=== PATIENT | male | born 1930 | race Caucasian/White ===

== ENCOUNTER 2017-06-30 11:17 | Emergency (ER) | payer OTHER, MEDICAID ==
[~2017-06-30] VITALS: Ht 167.6 cm; Wt 68.2 kg
[2017-06-30] MEDS ORDERED: ASPIRIN 81 MG TAB PO STA (11:21)
[2017-06-30] MEDS ORDERED: SOD CHLORIDE 0.9% 1,000 ML IV STA (11:21)
[2017-06-30] MEDS ORDERED: NITROGLYCERIN 2% 1 GM OINT PKT TD STA (11:21)
[2017-06-30 11:28] VITALS: Ht 167.6 cm; Wt 68.2 kg
[2017-06-30] MEDS ORDERED: NITROGLYCERIN (SL) 0.4 MG TAB SL PRN (11:30)
--- NOTE | 2017-06-30 12:01 | RADRPT ---
PROCEDURE: XR Chest. CLINICAL INDICATION: Chest pain. TECHNIQUE: Single frontal view. COMPARISON: None. FINDINGS: There is a nodule in the left upper lobe laterally measuring centimeter. There is bilateral pulmonar y scarring and possible small nodules in the right upper lobe. The heart is enlarged. There is calcification in the aorta consistent with atherosclerosis. There is no pleural effusion. There is no pneumothorax. IMPRESSION: 1. Cardiomegaly and atherosclerosis. 2. Left upper lobe nodule. Correlation with CT scan should be considered. 3. Bilateral pulmonary scarring and possible small nodules in the right upper lobe. RPTAT: QQ .Terrance Bethea MD, MD Date Time Electronically viewed and signed by .Terrance Bethea MD, MD on 06/30/2017 12:01 .R/
[2017-06-30 12:09] LABS: BASOPHILS % 0.3 % (0.0-2.0); EOSINOPHILS # 0.2 10^3/ul (0.0-0.5); EOSINOPHILS % 2.4 % (0.0-7.0); HEMATOCRIT 40.9 % (42.0-52.0); HEMOGLOBIN 13.2 g/dl (14.0-18.0); LYMPHOCYTES # 1.9 10^3/ul (0.8-2.9); LYMPHOCYTES % 21.4 % (15.0-51.0); MEAN CORPUSCULAR HEMOGLOBIN 31.1 pg (29.0-33.0); MEAN CORPUSCULAR HGB CONC 32.3 g/dl (32.0-37.0); MEAN CORPUSCULAR VOLUME 96.5 fl (82.0-101.0); MONOCYTE # 0.9 10^3/ul (0.3-0.9); NEUTROPHIL # 5.7 10^3/ul (1.6-7.5); NEUTROPHILS % 65.4 % (39.0-77.0); PLATELET COUNT 202 10^3/UL (140-415); RED BLOOD COUNT 4.24 10^6/ul (4.70-6.10); RED CELL DISTRIBUTION WIDTH 13.2 % (11.5-14.5); WHITE BLOOD COUNT 8.8 10^3/ul (4.8-10.8)
[2017-06-30 12:39] LABS: CALCIUM 9.6 mg/dl (8.4-10.2); CREATININE 0.89 mg/dl (0.61-1.24); POTASSIUM 4.6 mmol/L (3.5-5.1)
[2017-06-30 12:50] LABS: TROPONIN-I 0.111 ng/ml (0.00-0.12)
--- NOTE | 2017-06-30 13:21 | CONS ---
Date/Time of Note Date/Time of Note DATE: 06/30/17 TIME: 13:17 Assessment/Plan Assessment/Plan Chief Complaint/Hosp Course 1. abnormall ECG but not Acute STEMI: 2. HTN 3. Recent chest pain/ probably infarct vs old infarct 4. dyslipidemia ASA betablocker r/o IA with serial cardiac enzymes. tele monitoring. Thank you EDILBERTO PAGAN MD [facility] Problems: Consultation Date/Type/Reason Admit Date/Time Date of Consultation: Jun 30, 2017 Type of Consultation: interventional cardiology Reason for Consultation R/O STEMI Referring Provider: BLOSSOM BERMUDEZ MD Hx of Present Illness CC; sent from clinic for abnormal ECG HPI: Thank you for his referral. This is a pleasant 87-year-old gentleman with history of hypertension dyslipidemia who has had 3 episodes of chest pain about a week ago. He said that it lasted about 20 minutes. Resolved. Patient was seen today by his clinic at [facility] EKG was done and he was transferred to our emergency room. EKG was personally reviewed and showed Q waves in the anteroseptal leads consistent with recent anteroseptal infarct. Patient at this point denies any chest pain etc. he has not had any more chest pain over the past week. Discussed with ER physician Dr. Bermudez discussed with patient's grandson ALLERGY: NKDA med reviewed. PMH: HTN dyslipidemia family hx: no early CAD ROS: as above Social History Smoking Status: Never smoker Exam/Review of Systems Vital Signs Vitals Vital Signs Date Time Temp Pulse Resp B/P Pulse Ox O2 Delivery O2 Flow Rate FiO2 06/30/17 11:28 98.1 62 16 169/80 98 Exam General: Thin., no acute distress HEENT: NC/AT. pupils are equal. round. NECK: NO JVD. no stridor. CV: RRR. systolic murmur; no gallop or rubs. PULM: no wheezing or rhonchi. GI: SOFT, NT, ND, no rebound or guarding Extremity: trace B/L LE edema. no clubbing. neuro: awake and alert, OX3. Psych: calm and pleasant rectal: deferred : normal Results Result Diagram: 06/30/17 1141 06/30/17 1141 Results 24 hrs Laboratory Tests Test 06/30/17 11:41 White Blood Count 8.8 Red Blood Count 4.24 L Hemoglobin 13.2 L Hematocrit 40.9 L Mean Corpuscular Volume 96.5 Mean Corpuscular Hemoglobin 31.1 Mean Corpuscular Hemoglobin Concent 32.3 Red Cell Distribution Width 13.2 Platelet Count 202 Mean Platelet Volume 9.0 Neutrophils % 65.4 Lymphocytes % 21.4 Monocytes % 10.0 Eosinophils % 2.4 Basophils % 0.3 Nucleated Red Blood Cells % 0.0 Neutrophils # 5.7 Lymphocytes # 1.9 Monocytes # 0.9 Eosinophils # 0.2 Basophils # 0.0 Nucleated Red Blood Cells # 0.0 Sodium Level 139 Potassium Level 4.6 Chloride Level 104 Carbon Dioxide Level 30 Anion Gap 10 Blood Urea Nitrogen 14 Creatinine 0.89 Glucose Level 92 Calcium Level 9.6 Troponin I 0.111 EDILBERTO PAGAN MD Jun 30, 2017 13:21
[2017-06-30] MEDS ORDERED: LISI-313 PO (13:57)
[2017-06-30] MEDS ORDERED: LATA2.5D2 BOTH EYES (13:58)
[2017-06-30] MEDS ORDERED: ATEN-51 PO (13:58)
[2017-06-30] MEDS ORDERED: ATOR10TA65 PO (13:59)
--- NOTE | 2017-06-30 14:27 | ERA ---
ER Documentation Chief Complaint Date/Time DATE: 06/30/17 TIME: 14:25 Chief Complaint BIB R39 FROM [place] W/ EKG INDICATING STEMI. DENIES CP HPI Patient is an 87-year-old male with hypertension and high cholesterol presents with chest pain. 1 week ago he had chest pain which lasted 3 days. The pain lasted 20 minutes and was coming and going. He denies chest pain currently. He tried "pain pills". He was at a [facility] clinic today and had an abnormal EKG so he was sent to the emergency department for evaluation. He says that his primary doctor is Dr. Marsh at [facility]. ROS All systems reviewed and are negative except as per history of present illness. Medications Home Meds Reported Medications Atorvastatin Calcium (Atorvastatin Calcium) 10 Mg Tablet, 10 MG PO QHS, #30 TAB 06/30/17 Latanoprost (Latanoprost) 2.5 Ml Drops, 1 DROP BOTH EYES QHS, #1 BOTTLE 06/30/17 Atenolol* (Atenolol*) 25 Mg Tablet, 25 MG PO DAILY, #30 TAB 06/30/17 Lisinopril* (Lisinopril*) 5 Mg Tablet, 5 MG PO DAILY, #30 TAB 06/30/17 Allergies Allergies: Coded Allergies: No Known Allergy (Unverified , 06/30/17) PMhx/Soc History of Surgery: Yes (ABD) Anesthesia Reaction: No Hx Neurological Disorder: No Hx Respiratory Disorders: No Hx Cardiac Disorders: Yes (HTN, HIGH CHOLESTEROL) Hx Psychiatric Problems: No Hx Miscellaneous Medical Probl: Yes (PRE-DM) Hx Alcohol Use: No Hx Substance Use: No Hx Tobacco Use: No Smoking Status: Never smoker FmHx Family History: No coronary disease Physical Exam Vitals Vital Signs Date Time Temp Pulse Resp B/P Pulse Ox O2 Delivery O2 Flow Rate FiO2 06/30/17 13:38 51 16 147/52 98 Room Air 06/30/17 11:28 98.1 62 16 169/80 98 Physical Exam Const: No acute distress Head: Atraumatic Eyes: Normal Conjunctiva ENT: Normal External Ears, Nose and Mouth. Neck: Full range of motion..~ No meningismus. Resp: Clear to auscultation bilaterally Cardio: Regular rate and rhythm, no murmurs Abd: Soft, non tender, non distended. Normal bowel sounds Skin: No petechiae or rashes Back: No midline or flank tenderness Ext: No cyanosis, or edema Neur: Awake and alert Psych: Normal Mood and Affect Result Diagram: 06/30/17 1141 06/30/17 1141 Results 24 hrs Laboratory Tests Test 06/30/17 11:41 White Blood Count 8.810^3/ul Red Blood Count 4.2410^6/ul Hemoglobin 13.2g/dl Hematocrit 40.9% Mean Corpuscular Volume 96.5fl Mean Corpuscular Hemoglobin 31.1pg Mean Corpuscular Hemoglobin Concent 32.3g/dl Red Cell Distribution Width 13.2% Platelet Count 06758^3/UL Mean Platelet Volume 9.0fl Neutrophils % 65.4% Lymphocytes % 21.4% Monocytes % 10.0% Eosinophils % 2.4% Basophils % 0.3% Nucleated Red Blood Cells % 0.0/100WBC Neutrophils # 5.710^3/ul Lymphocytes # 1.910^3/ul Monocytes # 0.910^3/ul Eosinophils # 0.210^3/ul Basophils # 0.010^3/ul Nucleated Red Blood Cells # 0.010^3/ul Sodium Level 139mmol/L Potassium Level 4.6mmol/L Chloride Level 104mmol/L Carbon Dioxide Level 30mmol/L Anion Gap 10 Blood Urea Nitrogen 14mg/dl Creatinine 0.89mg/dl Glucose Level 92mg/dl Calcium Level 9.6mg/dl Troponin I 0.111ng/ml Current Medications Medications (Trade) Dose Ordered Sig/Carlin Route PRN Reason Start Time Stop Time Status Last Admin Dose Admin Sodium Chloride (NS) 1,000 ml @ 1,000 mls/hr Q1H STAT IV 06/30/17 11:21 06/30/17 12:20 DC 06/30/17 11:41 Aspirin (Aspirin) 162 mg ONCE STAT PO 06/30/17 11:21 06/30/17 11:22 DC 06/30/17 11:41 Nitroglycerin (Nitroglycerin 2% Oint) 1 inch ONCE STAT TD 06/30/17 11:21 06/30/17 11:22 DC 06/30/17 11:42 Nitroglycerin (Nitroglycerin (Sl Tab) 0.4 Mg) 1 tab Q5M UP TO 3 DOSES PRN SL CHEST PAIN 10/3/17 11:30 Procedures/MDM EKG #1 read by me: Rate/Rhythm: Regular rate and rhythm at a normal rate Intervals: Normal Impression: Biphasic T waves in leads V2 and V3 concerning for ischemia EKG #2 read by me: Rate/Rhythm: Regular rate and rhythm at a normal rate Intervals: Normal Impression: Biphasic T waves in leads V2 and V3 concerning for ischemia Chest x-ray shows chronic changes but no pneumonia or pneumothorax per radiology. Patient is an 87-year-old male with hypertension and high cholesterol who presents with chest pain 1 week ago. He has an abnormal EKG however it he was sent from the clinic. He was given aspirin and nitroglycerin. The patient has no chest pain or shortness of breath at this time. His EKG was concerning for possible Wellens syndrome and therefore I spoke with Dr. Ojeda from cardiology however Dr. Ojeda feels this is most likely a NC that the patient had 1 week ago. The patient is currently chest pain-free and does not need to go emergently to the cardiac Order Entry Specialist. The patient was given aspirin nitroglycerin empirically and will be transferred to [facility] for further treatment. He is a [facility] patient. At this point I doubt pneumonia, pneumothorax, pulmonary embolism, or aortic dissection. Critical Care: Time: 35 minutes excluding all billable procedures. Treatments/Evaluations: Close monitoring and treatment of unstable vital signs, cardiorespiratory, and neurologic status, while maintaining tight balance of fluid, respiratory, and cardiac interventions. Departure Diagnosis: Primary Impression: Abnormal EKG Additional Impression: Chest pain Qualified Code: R07.9 - Chest pain, unspecified type Condition: BLOSSOM Adames MD Jun 30, 2017 14:27
[2017-06-30 15:09] VITALS: BP 128/69; PULSE 56; RESP 16; TEMP 98.1
--- NOTE | 2017-07-01 06:52 | RADRPT ---
Echocardiogram Report Patient Name: RADHA GARAY Gender: Male Date: 1930 Study Date: 30-Jun-2017 Magazine Writer: Dion Smith [facility] Location: -1 Ref. Physician: EDILBERTO OJEDA Quality: Adequate Procedures: Transthoracic echocardiogram with complete 2D, M-Mode, and doppler examination. Indications: TN. 2D/M Mode Doppler Measurement Value Normal Ranges Measurement Value Normal Ranges LVIDd 2D 4.5 3.5 - 5.6 cm AV Peak Hever 1.7 m/sec LVIDs 2D 3.3 2.1 - 4.1 cm AV Peak PG 12.0 mmHg FS 2D 28.3 % LVOT Peak Hever 1.2 m/sec LVPWd 2D 1.3 0.6 - 1.1 cm LVOT Peak PG 6.0 mmHg IVSd 2D 1.3 0.6 - 1.1 cm MV E Peak Hever 0.6 m/sec IVS/LVPW 2D 1.0 MV A Peak Hever 1.1 m/sec AoR Diam 2D 3.2 2.0 - 3.7 cm MV E/A 0.6 LA/Ao 2D 1 0 - 1 MV Decel Time 275 msec EDV 2D 93.0 cm3 MV E/A 0.6 ESV 2D 34.3 cm3 TR Peak Hever 1.8 m/sec LA Dimen 2D 4.5 2.3 - 4.0 cm TR Peak PG 13.0 mmHg RVSP 16.0 mmHg Findings Left Ventricle: Normal left ventricular cavity size. Mild concentric left ventricular hypertrophy. Ejection fraction is visually estimated at 55 %. Tissue Doppler/Mitral Doppler indices are consistent with impaired relaxation (Stage I diastolic dysfunction). These segments of the LV are hypokinetic apical anterior segment and apical septum. Right Ventricle: Normal right ventricular size. Normal right ventricular systolic function. Left Atrium: There is mild enlargement of left atrium. Right Atrium: The right atrium is normal in size. Mitral Valve: Mild mitral leaflet calcification. Mild mitral annular calcification. Mild mitral valve regurgitation. Aortic Valve: Aortic sclerosis without stenosis. Trileaflet aortic valve. Trace aortic valve regurgitation. Tricuspid Valve: Normal appearance of the tricuspid valve. Estimated peak PA systolic pressure 16 mmHg. There is trace tricuspid regurgitation. Pulmonic Valve: Pulmonic valve not well visualized. There is trace pulmonic regurgitation. Pericardium: Normal pericardium with no significant pericardial effusion. Aorta: Normal aortic root. IVC: Normal size and normal respiratory collapse consistent with normal right atrial pressure. Conclusions 1.Normal left ventricular cavity size. Mild concentric left ventricular hypertrophy. Ejection fraction is visually estimated at 55 %. Tissue Doppler/Mitral Doppler indices are consistent with impaired relaxation (Stage I diastolic dysfunction). These segments of the LV are hypokinetic apical anterior segment. and apical septum. 2.There is mild enlargement of left atrium. 3.Mild mitral leaflet calcification. Mild mitral annular calcification. Mild mitral valve regurgitation. 4.Aortic sclerosis without stenosis. Trileaflet aortic valve. Trace aortic valve regurgitation. 5.Normal appearance of the tricuspid valve. Estimated peak PA systolic pressure 16 mmHg. There is trace tricuspid regurgitation. Electronically Signed By: Edilberto Ojeda 01-Jul-2017 06:51:56 -0700 Patient Name: RADHA GARAY Study Date: 30-Jun-2017 [id number]
== END 2017-06-30 15:10 | disposition short-term general hospital (02) ==
LOC: E/R 11:17
DX: R94.31 Abnormal electrocardiogram [ECG] [EKG] (principal); I10 Essential (primary) hypertension
CPT/HCPCS: 71010; 80048; 84484; 85025; 93005; 93306; 99291; J7030